=== PATIENT | male | born 1965 | race Hispanic/Latino ===

== ENCOUNTER → 2020-02-19 | Outpatient (CLI) | payer OTHER ==
[~2020-02-19] MED LIST: ALBUTEROL SULFATE 0.083% 2.5 MG/3 ML INH IH ONE
== END | disposition home or self-care (01) ==
LOC: RESP 10:56
PROVIDERS: ATTEND Orthopaedic Surgery
DX: J06.9 Acute upper respiratory infection, unspecified (principal)
CPT/HCPCS: 94060